=== PATIENT | female | born 1995 | race African-American/Black ===

== ENCOUNTER 2017-07-28 09:15 | Emergency (ER) | payer OTHER ==
[2017-07-28 09:26] VITALS: BP 142/84
[2017-07-28] MEDS ORDERED: DOXYCYCLINE 100 MG TABLET PO STA (12:15)
--- NOTE | 2017-07-28 12:20 | ED Physician Documentation ---
History of Present Illness - Stated complaint Stated Complaint: ORAL PX - Chief complaint Chief Complaint: Heent - Additonal information Additional information: Patient is a healthy 18-year-old female [place] She complains of a painful sore on the upper lip just above the frenulum that is been present for 4 months. Is very irritated and stings when she licks her lips. It does not come and go but is constant. In addition she complains of posterior pharynx pain that is been present for the same duration of time. She denies any other lesions or rashes or anything gynecologic. She does not have any past medical history. She does not chew or smoke. There are no other other complaints voiced. Review of systems: For pertinent positive and negatives in the review of systems please see the history of present illness, otherwise all other systems have been reviewed and are negative. Dragon disclaimer: Parts of this medical record were created using voice recognition technology. Because of the inherent limitations of this system, occasional same sounding word substitutions do occur and persist despite proofreading. Please read the document for context. Review of Systems Throat: reports: Oral lesions / sores Immunocompromised: denies: Immunocompromised, HIV/AIDS, Asplenic PD PAST MEDICAL HISTORY - Past Medical History Past Medical History: No - Present Medications Home Medications: Ambulatory Orders Medication Instructions Recorded Confirmed Doxycycline Hyclate [Vibramycin] 100 mg PO BID #14 capsule 07/28/17 - Allergies Allergies/Adverse Reactions: Allergies Allergy/AdvReac Type Severity Reaction Status Date / Time No Known Drug Allergies Allergy Verified 07/28/17 09:42 - Social History Does the pt smoke?: No Smoking Status: Never smoker PD ED PE NORMAL - Vitals Vital signs reviewed: Yes - General General: Alert and oriented X 3, No acute distress, Well developed/nourished - HEENT HEENT: Atraumatic, PERRL, EOMI, Ears normal, Moist mucous membranes, Pharynx benign, Dentition benign, Other (Really see much on physical examination there is a little area in the center of the upper lip just above the attachment of the frenulum that is oval and slightly prominent. He does not look obviously herpetic to me. It does not look like Behcet's. Her tonsils are mildly prominent otherwise she has normal oral mucosa, teeth, and gingiva. There is no local lymphadenopathy either) - Neck Neck: Supple, no meningeal sign - Cardiac Cardiac: RRR - Abdomen Abdomen: Normal bowel sounds - Derm Derm: Normal color, Warm and dry, No rash, Other - Extremities Extremities: No deformity Results - Vitals Vitals: Vital Signs - 24 hr 07/28/17 09:22 Temperature 36.7 C Heart Rate 95 Respiratory 14 Rate Blood Pressure 142/84 H O2 Saturation 100 Oxygen O2 Source Room air PD MEDICAL DECISION MAKING - ED course ED course: Patient has a small ovoid lesion on the upper lip adjacent to the frenulum that she claims is tender. Is been present for many months and is unchanged. It does not look obviously herpetic or infectious to me the rest of her oral and facial examination is normal. She is asking that I remove it. It does not look like the shots either and there is no other abnormal findings on physical examination. I did HSV on it although I suspect the chance of this being HSV positive is very very low. I did recommend that she consider follow-up with a parliamentary counsel so that can be evaluated properly including the possible need for a biopsy. I did review the dermatology text books to see if this lesion represented any type of obscure infection not seen [place]. She did agree to try short course of doxycycline to see if this helps. She was referred to dermatology via her base physician. Disposition: To home Clinical impression: 1. Subacute upper lip ovoid lesion adjacent to the frenulum, cause unknown Departure - Departure Disposition: 01 Home, Self Care Clinical Impression: Lesion of lip Condition: Good Instructions: Lesions Oral Prescriptions: Doxycycline Hyclate [Vibramycin] 100 mg PO BID #14 capsule Comments: We did viral testing of this spot on your upper lip which will take a few days to come back. I do not think it is herpetic however. If this lesion continues to bother you the most appropriate course of action would be to consider having it biopsied. A parliamentary counsel is probably the physician who could do this for you.
== END 2017-07-28 12:29 | disposition home or self-care (01) ==
LOC: ED 09:15
DX: K13.70 Unspecified lesions of oral mucosa (principal)
CPT/HCPCS: 86695; 86696; 87529; 99283

== ENCOUNTER 2018-03-28 14:47 | Outpatient (CLI) | payer OTHER ==
--- NOTE | 2018-03-28 22:20 | MRI Report ---
EXAM: MRI BRAIN AND INTERNAL AUDITORY CANAL (IAC) WITHOUT CONTRAST EXAM DATE: 03/28/2018 03:25 PM. CLINICAL HISTORY: TINNITUS, UNSPECIFIED EAR. COMPARISON: None. TECHNIQUE: Multiplanar, multisequence T1-weighted and fluid-sensitive MRI sequences of the brain and IACs were performed. Other: None. IV Contrast: None FINDINGS: Brain Volume: Normal for age. Parenchyma/Dura: No acute hemorrhage, mass, or acute infarct.No white matter lesions identified. Internal Auditory Canals (IACs): Normal. No cranial nerve lesion or inflammatory process identified. The inner ear structure are symmetric and unremarkable. The cerebellopontine angles bilaterally, the internal auditory canals bilaterally, the cochleas bilaterally, and the vestibular apparatuses bilate rally are unremarkable. Ventricles/Cisterns: No hydrocephalus. No abnormal extra-axial fluid collection or hemorrhage. Orbits: Symmetric and unremarkable. Sella Turcica: The pituitary gland, cavernous sinuses, suprasellar cistern and optic chiasm are unrem arkable. Vasculature: Normal signal flow void is seen in the major arterial structures at the skull base. The dural sinuses are patent Small mucous retention cyst/polyp left maxillary sinus. The remaining paranasal sinuses are clear. No acute sinus disease. Bones: No focal pathologic appearing marrow signal changes. Other: None. IMPRESSION: 1. No definite evidence of retrocochlear pathology on this noncontrast examination. The cerebellopont ine angles bilaterally, the internal auditory canals bilaterally, the cochleas bilaterally, and the v estibular apparatuses bilaterally are unremarkable. 2. No MRI evidence of acute intracranial abnormality. Specifically, no evidence of acute or subacute infarct, acute intracranial hemorrhage, mass, midline shift, or hydrocephalus. No white matter lesio ns. [facility] Referring Provider Line: [phone] SITE ID: [id number]
== END 2018-03-28 14:48 | disposition home or self-care (01) ==
LOC: DI 14:47
PROVIDERS: ATTEND Student in an Organized Health Care Education/Training Program
DX: H93.19 Tinnitus, unspecified ear (principal); R42 Dizziness and giddiness
CPT/HCPCS: 70551

== ENCOUNTER 2018-11-06 12:23 | Outpatient (CLI) | payer OTHER ==
--- NOTE | 2018-11-06 19:08 | MRI Report ---
Reason: PAIN IN LEFT KNEE Procedure Date: 11/06/2018 Accession Number: [id number] / [id number] Procedure: MRI - Knee LT W/O CPT Code: FULL RESULT: EXAM: LEFT KNEE MRI WITHOUT CONTRAST EXAM DATE: 11/06/2018 01:45 PM. CLINICAL HISTORY: Pain in left knee. COMPARISON: None. TECHNIQUE: Multiplanar, multisequence T1-weighted and fluid-sensitive sequences of the knee without contrast. Other: None. FINDINGS: Bones: No fractures or subluxations. No marrow edema. No bone lesions. Cyst 7 mm fibular head. Articular Cartilage: Severe chondromalacia patellar apex. Mild chondromalacia medial tibiofemoral compartment. Medial Meniscus: Diminutive medial meniscus body with truncation free edge and no intrameniscal fluid. Negative for displaced medial meniscus bucket handle tear. At the junction of the posterior horn and body medial meniscus is a parameniscal 8 mm x 4 mm x 7 mm cyst. Lateral Meniscus: The lateral meniscus is intact. Cruciate Ligaments: The anterior and posterior cruciate ligaments are intact. Collateral Ligaments: The medial collateral and lateral collateral ligamentous structures are intact. Tendons: The quadriceps, patellar, semimembranosus, and popliteus tendons are unremarkable. Musculature: No edema or fatty atrophy. Other: Moderate quantity of fluid patellar recesses. No popliteal cyst. No loose bodies. The medial and lateral retinacula are intact. The subcutaneous tissues and fat pads are unremarkable. IMPRESSION: 1. Diminutive medial meniscus body with free edge truncation and there is a parameniscal cyst 7.8 x 4.2 by a 7 mm junction of posterior horn and body medial meniscus. Without history of prior partial meniscectomy findings are consistent with medial meniscus tear. There is no displaced intracondylar meniscal fragment identified to confirm bucket handle tear. 2. Negative for lateral meniscus tear. 3. Severe chondromalacia patellar apex. [facility] MUSCULOSKELETAL [facility]IOLOGY SECTION
== END 2018-11-06 12:24 | disposition home or self-care (01) ==
LOC: DI 12:23
DX: M23.022 Cystic meniscus, posterior horn of medial meniscus, left knee (principal); M22.42 Chondromalacia patellae, left knee